=== PATIENT | female | born 2005 | race Caucasian/White ===

== ENCOUNTER 2023-09-18 22:44 | Emergency (ER) | payer OTHER, SELFPAY ==
[2023-09-18 22:53] VITALS: BP 109/60
--- NOTE | 2023-09-18 23:30 | ED.GENMED ---
History of Present Illness
General
Chief Complaint: Problems
Source: patient
Exam Limitations: none
Time Seen by Provider: 09/18/23 23:15
Travel History
Have you had any contact with someone who has COVID-19?: No
Do you have any symptoms of coronavirus? Fever > 100 degrees, chills, cough, shortness of breath, sore throat, loss of taste or smell, muscle aches, or headache?: No
History of Present Illness
History of Present Illness:
This is a 17 year old female that comes in with nausea/ vomiting, lower abd pain and low back pain. State that she has had nausea and vomiting for the past week. States that she also has low back pain for a week. States that she had some epigastric
discomfort with a headache and dizziness. States that she has some SOB going up the steps. States that she had seen an OB/GN in [place]. Denies any fever, chills, chest pain, diarrhea, urinary burning.
Past History
Past History
ED Past Medical History: Other (PCOS)
ED Past Surgical History: None
Social History
Tobacco: Non-smoker
Alcohol: None
Personal:
Living: with family
Review of Systems
Review of Systems
All Other Systems: ROS reviewed and negative except as documented in HPI and ROS
Constitutional: Reports no symptoms; Denies fever or chills
EENT: Reports no symptoms
Respiratory: Denies cough or trouble breathing
Cardiac: Denies chest pain
ABD/GI: Reports abdominal pain (Epigastric and lower abd discomfort), nausea and vomiting; Denies diarrhea
: Reports no symptoms; Denies dysuria, frequency or urgency
Musculoskeletal: Reports back pain (Low back pain)
Skin: Reports no symptoms
Neurological: Reports dizzy and headache
Psychiatric: Reports no symptoms
Phy Exam
General Physical Exam
General Presentation: well appearing and no apparent distress
General age: appears stated age
General Skin: warm and dry
General Habitus: normal
General Mental: alert
General Hydration: appears well hydrated
ENT Exam
ENT Exam: TM's normal, pharynx normal and neck supple
Eye Exam
Eye Exam: EOMI
Cardiovascular Exam
Cardiovascular Exam: regular rate/rhythm, no edema, no murmur and normal peripheral pulses
Pulmonary Exam
Pulmonary Exam: lungs clear, no respiratory distress, no rales, chest non tender, no crackles, no rhonchi, no wheezing and no cough
Gastrointestinal Exam
Gastrointestinal Exam: normal bowel sounds, non tender, soft, no organomegaly, no pulsatile mass and non distended
Musculoskeletal Exam
Musculoskeletal Exam: full ROM and no edema
Skin Exam
Skin Exam: normal color, warm/dry, no rash and no petechia
Psychiatric Exam
Psychiatric Exam: normal mood/affect
Course
Orders/Labs/Results
Orders:
Orders
09/18/23 23:28
0.9% Sodium Chloride 1000 ml [Nss] 1,000 ml IV BOLUS
Metoclopramide [Reglan] 10 mg IV NOW STA
09/18/23 23:29
Urinalysis Reflex To Culture Urgent
Specimen Description:
Date Specimen was Collected: 09/19/23
Time Specimen was Collected: 01:11
09/18/23 23:38
Blood Group&Type Urgent
Beta HCG Quantitative Urgent
Is this a screen?: No
Complete Blood Count/With Diff Urgent
Comprehensive Metabolic Panel Urgent
09/19/23 00:00
US 1st Trimester Urgent
Reason For Exam: Lower abd pain
Abnormal Lab Results
09/18/23
23:38
RBC 3.77 L 10^6/uL
(4.20-5.40)
Hgb 11.5 L g/dL
(12.0-16.0)
Hct 32.6 L %
(37.0-47.0)
MPV 10.9 H fL
(7.4-10.4)
Absolute Neuts (auto) 7.4 H 10^3/uL
(1.4-6.5)
Lymphocytes % 19.6 L %
(20.5-51.1)
Carbon Dioxide 21 L mmol/L
(22-30)
Creatinine 0.5 L mg/dL
(0.6-1.0)
Calcium 11.4 H mg/dl
(8.4-10.2)
09/18/23 23:38
09/18/23 23:38
H/H slightly low. calcium slightly elevated. AB positive. HCG 408963.00, Urine negative for infection.
Vital Signs
Initial and Last Documented VS:
Initial Vital Signs
Temp Pulse Resp BP Pulse Ox
98.5 F 96 16 109/60 98
09/18/23 22:53 09/18/23 22:53 09/18/23 22:53 09/18/23 22:53 09/18/23 22:53
Last Documented Vital Signs
Temp Pulse Resp BP Pulse Ox
98.5 F 96 16 109/60 98
09/18/23 22:53 09/18/23 22:53 09/18/23 22:53 09/18/23 22:53 09/18/23 22:53
Information
Weeks gestation: Weeks: (10 weeks 1 day)
Location: Location: (Intrauterine)
MDM/Problems Addressed
Differential Diagnosis Includes:
Vomiting in , UTI,
MDM/Problems Addressed:
This is a 17 year old female that comes in with multiple complaints. State that she has been vomiting for a week. States that she has low back pain, epigastric discomfort, headache, dizziness and lower abd discomfort.
Will check labs, US and given IV fluids with Antiemetics.
back into see patient. Explained that her blood work is normal and her urine is negative for infection. States that her nausea is feeling better. Her US shows that she is 10 weeks and 1 days. Patient to follow up with the [facility]INE ENG[facility]ING PROFESSOR. Patient to return
with any concerns.
Chronic conditions affecting care:
NA
Acute Exacerbation and/or Progression of Chronic Illness:
NA
*Radiology
Radiology exam reviewed: radiology read reviewed (US- [facility]wk- Single Intrauterine gestation containing an embryo with cardiac motion (161-165). By crown-rump length of 32mm, calculated sonographic age of 10 weeks and 1 days (US LUIS FELIPE 04/15/2024).
No evidence of discrete jeny-gestational hemorrhage. The cervix is closed. Normal ) and other (US cont- physiologic appearance of the left ovary, which measures 2.8cm. The right ovary s not visualized, although there is no right adnexal mass. No
significant free fluid in the pelvic cul-de-sac. )
*Pulse Oximetry
Patient hypoxic: no
*EKG
Interpreted by ED Provider?: NA
Rate: EKG- N/A
*File Keeper Interpretation
Rate: File Keeper- N/A
*Critical Care Note
Total Time (30-74mins, 75-104mins- exclusive of procedures): Not Applicable
ED Attending Note
-
Portions of this chart may have been created with voice recognition software.� Occasional wrong word or��sound alike� substitutions may have occurred due to the inherent limitations of voice recognition software.
Discharge Plan
Departure
Patient Disposition: Home (Routine Discharge)
Date of Disposition: 09/19/23
Time of Disposition: 01:39
Patient with high blood pressure during this ER visit?: No
Condition: Good
Covid-19: Not Applicable
Discharge Problem:
Vomiting during
Instructions: Morning Sickness (DC)
Prescriptions:
New
metoclopramide HCl [Reglan] 10 mg tablet
10 mg PO Q8HPRN PRN (Reason: nausea and vomiting) Qty: 9 0RF
Referrals:
NONE,* [Family Provider] -
Elle Joseph MD [Active] - Follow up in 2-3 days
Activity Restrictions/Additional Instructions:
As discussed, your blood work is normal and your urine is negative for infection. Your Ultrasound shows you are 10 weeks and 1 days. Please increase your water intake to 8-8oz glasses daily. Follow up with the MARINE ENGINEERING PROFESSOR for further evaluation. Please
let them know you were seen in the emergency room and need follow up. You have been given a prescription for Reglan to help with the nausea/vomiting. IF YOU HAVE ANY OTHER CONCERNS PLEASE RETURN TO THE EMERGENCY ROOM.
Interventions
Interventions:
*Risk Screen - Suicide Last Done: 09/18/23 22:53
*Neglect/Abuse Screening Last Done: 09/18/23 22:53
ED- Fall Risk Assessment Last Done: 09/18/23 23:45
*ED COVID-19 Vaccine History Last Done: 09/18/23 22:53
ED-Female Genitourinary Assessment Last Done: 09/18/23 23:45
Discharge Date and Time
Print Language: TELUGU
[2023-09-18] MEDS: REGLAN 10 MG IV (23:45)
[2023-09-18] MEDS: NSS 1000 IV (23:45)
[2023-09-18 23:53] LABS: % Basophils 0.6 % (0-2); % Eosinophils 1.1 % (0-6); % Immature Granulocytes 0.2 % (0-0.5); % Lymphocytes 19.6 % (20.5-51.1); % Monocytes 5.8 % (1.7-9.3); % Neutrophils 72.7 % (42.2-75.2); Absolute Basophils 0.1 10^3/uL (0-0.2); Absolute Eosinophils 0.1 10^3/uL (0-0.7); Absolute Monocytes 0.6 10^3/uL (0.1-0.6); Absolute Neutrophils 7.4 10^3/uL (1.4-6.5); Hematocrit 32.6 % (37.0-47.0); Hemoglobin 11.5 g/dL (12.0-16.0); Mean Corp Hgb Conc. 35.3 g/dL (33.0-37.0); Mean Corpuscular Hgb 30.5 pg (27.0-31.0); Mean Corpuscular Volume 86.5 fL (81.0-99.0); Mean Platelet Volume 10.9 fL (7.4-10.4); Nucleated Red Blood Cells % 0 %; Platelet Count 215 10^3/uL (130-400); Red Blood Cell Count 3.77 10^6/uL (4.20-5.40); White Blood Cell Count 10.2 10^3/uL (4.8-10.8)
[2023-09-18 23:59] LABS: ALT (SGPT) 17 U/L (0-35); AST (SGOT) 22 U/L (14-36); Albumin 3.9 g/dl (3.5-5.0); Alkaline Phosphatase 56 U/L (38-126); Blood Urea Nitrogen 11 mg/dl (7-17); Calcium 11.4 mg/dl (8.4-10.2); Carbon Dioxide 21 mmol/L (22-30); Chloride 106 mmol/L (98-107); Glucose 98 mg/dl (70-99); Potassium 4.4 mmol/L (3.5-5.1); Sodium 135 mmol/L (135-145); Total Bilirubin 0.3 mg/dl (0.2-1.3); Total Protein 6.3 g/dl (6.3-8.2); eGFR > 60.00
[2023-09-19 01:21] LABS: Urine Albumin Negative (Neg - Trace); Urine Bilirubin Negative (Negative); Urine Character Slightly Cloudy (Clear); Urine Color Yellow; Urine Glucose Negative (Negative); Urine Ketone Negative (Negative); Urine Leukocyte Negative (Negative); Urine Nitrite Negative (Negative); Urine Occult Blood Negative (Negative); Urine Urobilinogen Negative (Neg - 1+)
== END 2023-09-19 01:50 | disposition home or self-care (01) ==
LOC: EMR 22:44
PROVIDERS: Clinical Nurse Specialist Family Health; EMERGENCY PHYSICIAN Emergency Medicine
DX: O26.891 Other specified pregnancy related conditions, first trimester (principal); O21.9 Vomiting of pregnancy, unspecified; Z3A.10 10 weeks gestation of pregnancy
CPT/HCPCS: 99284; 96374; 96361; 76801; 80053; 81003; 84702; 85025; 86900; 86901